=== PATIENT | female | born 1960 | race Caucasian/White ===

== ENCOUNTER → 2023-07-28 | Outpatient (CLI) | payer BC, SELFPAY ==
--- NOTE | 2023-07-28 16:24 | US_ITS ---
INDICATION: UTI EXAMINATION: Ultrasound US Kidney(s) complete (eg, kidneys and bladder) TECHNIQUE: Zelaya scale and color doppler images were obtained of the kidneys. COMPARISON: FINDINGS: RIGHT KIDNEY: 12.5 x 3.6 x 4.5 cm. The cortex is 10 mm.. There is no hydronephrosis. No shadowing calculus, focal lesion or perinephric collection is demonstrated. LEFT KIDNEY: 10.5 x 4.7 x 4.7 cm. The cortex is 11 mm. There is no hydronephrosis. No shadowing calculus, focal lesion or perinephric collection is demonstrated. URINARY BLADDER: No acute abnormality. US/Kidney and Bladder IMPRESSION: Negative renal ultrasound. Electronically Signed: Benigno Espinosa DO at 23:58 EST ,
--- OUTSIDE RECORDS SUMMARY | 2023-07-29 00:03 | XMS RPT_ITS | CCD ---
Author Name Unknown Address [address] [place] [id number] Organization [facility] Care Team Providers Care Greeter Guest Services Name Role Phone Damian Haq Primary Care Provider FERNANDO HEATON Referring Unavailab le DAMIAN HAQ Primary Care Unavailable Problems Problem Classification Problem Date Documented Da te Episodic/Chronic Residual codes; unclassified (1 source) Family history of diabetes mellitus; Translations: [Family history of diabetes mellitus in father] 08-26-2018 Episodic Thyroid disorders (1 source) Thyroid nodule; Translations: [Thyroid nodule] Onset: 06-02-2016 08-26-2018 Chronic Results Test Name Value Interpretation Reference Range Facil ity Encounters Encounter Date Encounter Type Care Provider Facility Start: 01-01-2023 Documentation procedure Mammog newton Coordinator [facility] Start: 01-01-2023 Letter encounter Mammography Coordinator [facility] NOT LISTED Start: 12-31-2022 ambulatory FERNANDO Berger acility:[facility] Start: 12-31-2022 End: 12-31-2022 Subsequent hospital visit by physician Screen Mammo [facility] MAMMO REFLE[facility] Procedures Date Procedure Procedure Detail Performing Clinician Start: 12-31-2022 Mammography Mammograph y Coordinator Start: 11-27-2021 End: 11-27-2021 Screening mammography bi 2-view breast inc cad Gonzalez Malave Work Phone: Start: 11-23-2020 End: 11-23-2020 Screening mammography bi 2-view breast inc cad Gonzalez Malave Work Phone: Start: 12-16-2019 Us soft tissue head & neck real time imge docm Gomez Cardozaigham Work Phone: Start: 11-22-2019 Mammography Gonzalez gomez Start: 08-29-2011 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 Ronen Malave Work Phone: Plan of Treatment Date Care Activity Detail Author Start: 01-01-2028 DTaP/Tdap/Td vaccine (2 - Td) DTaP/Tdap/Td vaccine (2 - Td) [place] Start: 01-01-2024 Mammography MAMMOGRAM [facility] Start: 01-31-2023 Influenza vaccination INFLUENZA (#1) [facility] Start: 11-27-2022 Mammography MAMMOGRAM [facility] Start: 06-02-2022 DEPRESSION ASSESSMENT DEPRESSION ASSESSMENT [facility] Start: 01-31-2022 Influenza vaccination INFLUENZA (Season Ended) [facility] Start: 11-23-2021 Mammography MAMMOGRAM [facility] Start: 10-26-2021 COVID-19 VACCINE (3 - Booster for Moderna series) COVID-19 VACCINE (3 - Booster for Moderna series) [facility] Start: 07-23-2021 COVID-19 VACCINE (3 - Moderna series) COVID-19 VACCINE (3 - Moderna series) [facility] Start: 01-31-2021 [facility] Start: 11-21-2020 Mammography MAMMOGRAM [facility] Start: 09-08-2020 COVID-19 VACCINE (2 - Moderna 2-dose series) COVID-19 VACCINE (2 - Moderna 2-dose series) [facility] Start: 02-01-2020 Influenza vaccination [place], [place] Start: 09-21-2018 PAP TESTING PAP TESTING [facility] Start: 02-14-2018 Screening for malignant neoplasm of breast Breast cancer screen [place], [place] Start: 12-06-2011 Screening for malignant neoplasm of colon [place], [place] Start: 12-06-2011 Shingles Vaccine (1 of 2) Shingles Vaccine (1 of 2) [place] Start: 12-06-2011 SHINGRIX VACCINE (1 of 2) SHINGRIX VACCINE (1 of 2) [facility] Start: 12-06-2011 Tuberculosis screening COLORECTAL CANCER SCREENING,SEE MODIFIER [facility] Start: 2006 COLOGUARD (FIT-DNA) COLOGUARD (FIT-DNA) [facility] Start: 2006 Colonoscopy COLONOSCOPY [facility] Start: 2006 COLORECTAL CANCER SCREENING COLORECTAL CANCER SCREENING [facility] Start: [address] COLONOGRAPHY [facility] Start: 2006 DIABETES SCREEN DIABETES SCREEN [facility] Start: 2006 FECAL OCCULT BLOOD FECAL OCCULT BLOOD [facility] Start: 2006 LIPID SCREEN LIPID SCREEN [facility] Start: 2006 SIGMOIDOSCOPY SIGMOIDOSCOPY [facility] Start: 2001 Lipid panel Lipid screen [place], [place] Start: 12-06-1991 HPV TESTING HPV TESTING [facility] Start: 1982 Screening for malignant neoplasm of cervix Cervical cancer screen [place], [place] Start: 1980 Urine microalbumin profile DTAP,TDAP,TD (1 - Tdap) [facility] Start: 12-06-1979 HEPATITIS C SCREENING HEPATITIS C SCREENING [facility] Start: 12-06-1979 HIV SCREENING HIV SCREENING [facility] Start: 1976 HIV screening HIV screen [place], [place] Start: 1973 Adult depression screening assessment DEPRESSION SCREENING [facility] Start: 1961 Hepatitis C screening Hepatitis C screen [place], [place] Immunizations Immunization Date Immunization Notes Care Provider Casey devine 12-31-2017 tetanus toxoid, redu belinda diphtheria toxoid, and acellular pertussis vaccine, adsorbed Gomez [place], [place] Payers Date Payer Category Payer Unknown [id number] 2005 Unknown GEOVANNI GALARZA BS FEP PPO [id number] 2005-Present [phone] [address] [place] [address] PPO [id number] 2005 Unknown [id number] Social History Date Type Detail Facility Start: 08-26-2018 Tobacco smoking stat us PAIS Never smoker [place], [place] Start: 08-26-2018 Tobacco use and exposure Never used [place] Start: 08-26-2018 Alcohol intake 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 [facility] Start: 08-26-2018 History SDOH Social Connections Living 3 Yasmin [facility] Start: 08-26-2018 History SDOH Stress 1 Naomi guardado [facility] Start: 08-26-2018 History SDOH Financial 5 Yasmin [facility] Start: 08-26-2018 History SDOH Transpo rt Med 2 Yasmin [facility] Start: 1960 Sex Assigned At Not on file M [place], [place] Start: 11-17-2021 End: 11-27-2021 Exposure to SARS-CoV-2 (event) Not sure [facility] Tobacco smoking stat [facility] Tobacco smoking consumption unknown [facility] Start: 1960 Sex Assigned At Female C [facility] Start: 05-10-2020 History of Social function [facility] Start: 05-10-2020 Area Deprivation Index Area De privation Index Answer Date Recorded National Score (1-100), lower number is lower risk Not on file State Score (1-10), lower number is lower risk Not on file Data from: https://www.neighborhood atlas.medicine.[facility] [place].edu/ . Last address used for calculation Not on file [facility] National Score (1-10 0), lower number is lower risk Not on file [facility] Start: 11-20-2021 Gender identity Identifies as female gender (finding) [facility] Start: 11-20-2021 Sexual orientation Heterosexual (fin ding) [facility] Note 01-01-2023 Letter - Coordinator, Mammography - 01/01/2023 12:46 PM EDT Note Date & Type Note Facility 01-01-2023 Miscellaneous Notes Formattin g of this note might be different from the original. [id number] [place] [address] January 01, 2023 PID: [id number] Nina Rajan [address] [place] [address] Dear Ms. Rajan, We are pleased to inform you that the results of your recent breast imaging exam on 12/31/2022 are normal. Early detection of cancer is very important. We also understand recommendations regarding breast cancer screening are controversial. Please discuss with your primary care provider which strategy is best for you and whether a mammogram is right for you. Your imaging studies and report will be kept on file at [facility] as part of your permanent medical record and are available for your continuing care. Thank you for allowing us to help in meeting your health care needs. Sincerely, Dr. Bowling Interpreting Radiologist [facility] (Normal over 40) documented in this encounter [facility] Progress note 12-31-2022 Note Date & Type Note Facility 12-31-2022 Note HNO ID: [id number] Author: Madyson Brito RT(R) Service: ? Author Type: Technologist Type: Progress Notes Filed: 12/31/2022 10:31 AM Note Text: Radiology Service Progress Note PATIENT NAME: Nina Rajan DATE OF SERVICE: December 31, 2022 TIME: 10:22 AM PATIENT IDENTITY VERIFICATION COMPLETED USING TWO (2) IDENTIFIERS: Name and Date of confirmed by patient verbally. FALL SCREENING: Has the patient had 2 falls in the last year or 1 fall with injury or currently using an Ambulatory Assistive Device (Walker, Cane, Wheelchair, Crutches, etc.)? No PATIENT GENDER DATA: Female. status: : No status: NO. PATIENT RELEVANT IMPLANT DATA REVIEWED: Yes RADIOLOGY DEPARTMENT: Mammography PERIPHERAL IV DATA: Not applicable SIGNED BY: RT Amie(Matty) December 31, 2022 10:22 AM [facility] History of Present illness Narrative 12-31-2022 Madyson Brito RT(R) - 12/31/2022 10:20 AM EDT Note Date & Type Note Facility 12-31-2022 History of Presen t illness Narrative Radiology Service Progress Note PATIENT NAME: Nina Rajan DATE OF SERVICE: December 31, 2022 TIME: 10:22 AM PATIENT IDENTITY VERIFICATION COMPLETED USING TWO (2) IDENTIFIERS: Name and Date of confirmed by patient verbally. FALL SCREENING: Has the patient had 2 falls in the last year or 1 fall with injury or currently using an Ambulatory Assistive Device (Walker, Cane, Wheelchair, Crutches, etc.)? No PATIENT GENDER DATA: Female. status: : No status: NO. PATIENT RELEVANT IMPLANT DATA REVIEWED: Yes RADIOLOGY DEPARTMENT: Mammography PERIPHERAL IV DATA: Not applicable SIGNED BY: RT Amie(R) December 31, 2022 10:22 AM documented in this encounter [facility] Note 11-27-2021 Letter - Mammography Coordinator - 11/27/2021 12:49 PM EDT Note Date & Type Note Facility 11-27-2021 Miscellaneous Notes [facility] [address] [place] [address] November 27, 2021 PID: [id number] Nina Rajan [address] [place] [address] Dear Ms. Rajan, We are pleased to inform you that the results of your recent breast imaging exam on 11/27/2021 are normal. Early detection of cancer is very important. We also understand recommendations regarding breast cancer screening are controversial. Please discuss with your primary care provider which strategy is best for you and whether a mammogram is right for you. Your imaging studies and report will be kept on file at [facility] as part of your permanent medical record and are available for your continuing care. Thank you for allowing us to help in meeting your health care needs. Sincerely, Dr. Castellon Interpreting Radiologist [facility] (Normal over 40) documented in this encounter [facility] Note 11-23-2020 Letter - Coordinator, Mammography - 11/23/2020 11:21 AM EDT Note Date & Type Note Facility 11-23-2020 Miscellaneous Notes [facility] [address] [place] [address] November 23, 2020 PID: [id number] Nina Rajan [address] [place] [address] Dear Ms. Rajan, We are pleased to inform you that the results of your recent breast imaging exam on 11/23/2020 are normal. Early detection of cancer is very important. We also understand recommendations regarding breast cancer screening are controversial. Please discuss with your primary care provider which strategy is best for you and whether a mammogram is right for you. Your imaging studies and report will be kept on file at [facility] as part of your permanent medical record and are available for your continuing care. Thank you for allowing us to help in meeting your health care needs. Sincerely, Dr. 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 Advance Directives and Living Will Power of Supervisor Electric Summary Purpose Family History No Family History Records FoundNo Family History Records FoundNo Family History Records Found Additional Source Comments Source Comments (unrecognize d section and content) In the event this informatio n is protected by the Federal Confidentiality of Alcohol and Drug Abuse Patient Records regulations: The Federal rules restrict any use of the information to criminally investigate or prosecute any alcohol or drug abuse patient.[facility] the event this information is protected by the Federal Confidentiality of Alcohol and Drug Abuse Patient Records regulations: The Federal rules restrict any use of the information to criminally investigate or prosecute any alcohol or drug abuse patient.[facility] the event this information is protected by the Federal Confidentiality of Alcohol and Drug Abuse Patient Records regulations: The Federal rules restrict any use of the information to criminally investigate or prosecute any alcohol or drug abuse patient.[facility] the event this information is protected by the Federal Confidentiality of Alcohol and Drug Abuse Patient Records regulations: The Federal rules restrict any use of the information to criminally investigate or prosecute any alcohol or drug abuse patient.[facility] the event this information is protected by the Federal Confidentiality of Alcohol and Drug Abuse Patient Records regulations: The Federal rules restrict any use of the information to criminally investigate or prosecute any alcohol or drug abuse patient.[facility] the event this information is protected by the Federal Confidentiality of Alcohol and Drug Abuse Patient Records regulations: The Federal rules restrict any use of the information to criminally investigate or prosecute any alcohol or drug abuse patient.[facility] the event this information is protected by the Federal Confidentiality of Alcohol and Drug Abuse Patient Records regulations: The Federal rules restrict any use of the information to criminally investigate or prosecute any alcohol or drug abuse patient.[facility] INFORMATION SOURCE (unrecogn ized section and content) DATE CREATED AUTHOR AUTHOR'S ORGANIZ ATION 02/22/2021 [facility] DATE CREATED AUTHOR AUTHOR'S ORGANIZ ATION 01/25/2023 [facility] Reason for Visit (unrecogniz ed section and content) Care Teams (unrecognized sec tion and content) Greeter Guest Services Relationship Specialty Start Date End Date Damian Haq [address] [place] [address] PCP - General Family Practice 06/16/17 Greeter Guest Services Relationship Specialty Start Date End Date Damian Haq [address] [place] [address] PCP - General Family Medicine 06/16/17 Greeter Guest Services Relationship Specialty Start Date End Date Damian Haq [address] [place] [address] PCP - General Family Medicine 06/16/17 FOR RECORDS PERTAINING TO PATIENTS WHO ARE OR HAVE BEEN ENROLLED IN A CHEMICAL DEPENDENCY/SUBSTANCEABUSE PROGRAM, SOME INFORMATION MAY BE OMITTED. This clinical summary was aggregated from multiple sources. Caution should be exercised in using it in the provision of clinical care. This summary normalizes information from multiple sources, and as a consequence, information in this document may materially change the coding, format and clinical context of patient data. In addition, data may be omitted in some cases. CLINICAL DECISIONS SHOULD BE BASED ON THE PRIMARY CLINICAL RECORDS. [facility] [employer] [facility]. provides no warranty or guarantee of the accuracy or completeness of information in this document.
== END | disposition home or self-care (01) ==
PROVIDERS: PCP Family Medicine; Referring Provider Urology; Visit Provider Urology
DX: N39.0 Urinary tract infection, site not specified (principal)
CPT/HCPCS: 76770

== ENCOUNTER 2023-09-18 06:07 | Day surgery (SDC) | payer BC, SELFPAY ==
[2023-09-18] MEDS: Lactated Ringers 1,000 ML 15 ML IV (06:42)
[2023-09-18 06:43] VITALS: BP 139/71; PULSE 64; RESP 16; TEMP 36.1; O2SAT 100; BMI 25.4
[2023-09-18] MEDS: Cefazolin 2 GM in 0.9% Normal Saline (100mL Bag) 100 ML IV (07:29)
[2023-09-18 07:50] VITALS: BP 139/71; BP 80/49; PULSE 66; RESP 16; TEMP 36.9; O2SAT 93
[2023-09-18 07:55] VITALS: BP 139/71; BP 86/51; PULSE 81; RESP 16; O2SAT 94
[2023-09-18 08:00] VITALS: BP 100/65; BP 139/71; PULSE 77; RESP 16; O2SAT 97
[2023-09-18 08:04] VITALS: BP 114/80; BP 139/71; PULSE 67; RESP 16; TEMP 36.5; O2SAT 100
--- NOTE | 2023-09-18 08:06 | DCINST_ITS ---
Discharge Instructions Diet Discharge Diet: No restrictions Activity Discharge Activity: Return to Normal Activity Dressing / Incision Call your doctor if you observe: Fever of 101 or Higher, Inability to urinate and Inability to have a bowel movement Follow Up Care Please Follow Up With: Vesna Khalil MD When: Please take the nightly cephalexin twice a day for the next 2 days (starting tomorrow). Follow up in the office in 2-3 weeks Test Results: Test results from this visit will be discussed in further detail at your follow- up appointment, if applicable. Discharge Plan Admission Attending Provider: Vesna Khalil Primary Care Provider: Damian Haq Discharge Orders/Prescriptions Prescriptions: Continued cephalexin 250 mg capsule 250 mg PO QHS cranberry 500 mg capsule 500 mg PO TID Rx Instructions: administer with meals NewFlora 10 billion cell capsule 100 mmu cells PO DAILY ascorbic acid (vitamin C) [C Complex] 500 mg tablet extended release 500 mg PO DAILY Referrals / Follow Up: Damian Haq DO [Primary Care Provider] - Disposition Disposition (needs filled in before D/C Order can be placed): Home, Self Care
--- NOTE | 2023-09-18 08:07 | PCM.OPRPT ---
Report of Operation Date of Procedure: 09/18/23 Pre-Operative Diagnosis: Urethral stricture, urinary tract infection Post-Operative Diagnosis: Same, vaginal atrophy, mild anterior pelvic floor laxity Surgery/Procedure Performed:: Urethral dilation, cystourethroscopy, pelvic exam under anesthesia Surgeon: Vesna Khalil Type of Anesthesia: MAC Estimated Blood Loss (mL): 2 to 3 cc Description of Procedure: The patient is a 62-year-old female with urinary tract infections who presented to the office for evaluation. She was unable to undergo the cystoscopy in the office secondary to urethral narrowing. It was too uncomfortable to dilate in the office. She now presents for urethral dilation and cystourethroscopy under anesthesia. Informed consent was obtained. The patient was taken to the operating room and placed on the operating room table. Anesthesia monitored the head, neck, airway, IV access and vital signs throughout the case. Once anesthesia was appropriately administered, she was placed into dorsolithotomy position and was prepped and draped in usual sterile fashion. At this time the urethra was dilated from 14 Mauritanian to 30 Mauritanian with cracking of the mucosa and minimal blood loss. The cystoscope then easily passed through the urethra into the urinary bladder. The bladder mucosa was visualized in its entirety revealing no evidence of mass, erythema, ulceration or foreign body. There was no trabeculation identified. There is a mild laxity of the anterior vaginal wall seen on cystoscopy, consistent with early development of a cystocele. At this time the bladder was emptied and the cystoscope was removed. She was awakened and taken to the recovery room in good condition. Grafts/Implants Used: None Complications None Admit VTE Documentation VTE Present on Admission: Yes VTE Mechan Device Prophylaxis: SCD's VTE Pharm Prophylaxis ordered?: No Reason prophylaxis not ordered:: Treatment Not Indicated
[2023-09-18 08:50] VITALS: BP 139/71
== END 2023-09-18 08:55 | disposition home or self-care (01) ==
LOC: SDC 06:09 → AC 06:10
PROVIDERS: PCP Family Medicine; Referring Provider Urology; Visit Provider Urology
PROC: 0T7D8ZZ Dilation of Urethra, Via Natural or Artificial Opening Endoscopic (ICD-10-PCS; CPT 52281; principal; 2023-09-18 07:20)
DX: N35.92 Unspecified urethral stricture, female (principal); N39.0 Urinary tract infection, site not specified; N95.2 Postmenopausal atrophic vaginitis
CPT/HCPCS: 52281; 00910; J7120; J2405